=== PATIENT | male | born 1940 | race Caucasian/White ===

== ENCOUNTER 2021-06-29 10:33 | Inpatient (IN) | payer OTHER, BC ==
[2021-06-29 12:20] VITALS: BMI 30.4
[2021-06-29] MEDS ORDERED: MENTHOL/PHENOL 1 EACH UD MM PRN (16:43)
[2021-06-29] MEDS ORDERED: ACETAMINOPHEN 325 MG TABLET (FP) PO PRN ×2 (16:43)
[2021-06-29] MEDS ORDERED: MAGNESIUM CITRATE 300 ML BOTTLE PO PRN (16:43)
[2021-06-29] MEDS ORDERED: LORazepam 1 MG TABLET PO PRN (16:43)
[2021-06-29] MEDS ORDERED: MAGNESIUM HYDROX 2400MG/30ML ORAL SUSPENSION 30 ML CUP PO PRN (16:43)
[2021-06-29] MEDS ORDERED: IBUPROFEN 400 MG TABLET (FP) PO PRN (16:43)
[2021-06-29] MEDS ORDERED: ONDANSETRON *ODT* 4 MG TABLET SL PRN (16:43)
[2021-06-29] MEDS ORDERED: BISMUTH SUBSALICYLATE 524 MG/30 ML PO PRN (16:43)
[2021-06-29] MEDS ORDERED: MAG HYDROX/AL HYDROX/SIMETH 30 ML UNIT-DOSE CUP PO PRN (16:43)
[2021-06-29] MEDS ORDERED: amLODIPine BESYLATE 5 MG TABLET (FP) PO SCH (17:45)
[2021-06-29] MEDS: LORazepam 2 MG TABLET PO SCH ×2 (20:50→22:39)
[2021-06-29] MEDS: hydrOXYzine PAMOATE 25 MG CAPSULE (FP) PO SCH ×2 (20:50→22:39)
[2021-06-29] MEDS: THIAMINE HCL 100 MG TABLET (FP) PO SCH (22:39)
[2021-06-29] MEDS: MELATONIN 5 MG TABLETS PO SCH (22:39)
[2021-06-30] MEDS: hydrOXYzine PAMOATE 25 MG CAPSULE (FP) PO SCH ×5 (06:06→23:01)
[2021-06-30] MEDS: LORazepam 2 MG TABLET PO SCH ×4 (06:06→23:02)
[2021-06-30 11:02] LABS: HEMATOCRIT 45.9 % (35.4-49); HEMOGLOBIN 15.7 GM/dL (11.7-16.9); MCH 32.9 pg (25.7-33.7); MCHC 34.2 g/dl (32.0-35.9); MEAN CELL VOLUME 95.9 fl (80-96); MEAN PLT VOLUME 7.7 fl (7.5-11.1); PLATELET COUNT 327 10^3/uL (134-434); RBC 4.79 M/mm3 (4.00-5.60); RDW 13.9 % (11.9-15.9); WHITE BLOOD COUNT 8.9 K/mm3 (4.0-10.0)
[2021-06-30] MEDS: amLODIPine BESYLATE 10 MG TABLET (FP) PO SCH (11:40)
[2021-06-30 11:45] LABS: CALCIUM 9.6 mg/dL (8.5-10.1)
[2021-06-30 11:46] LABS: ALBUMIN 3.9 g/dl (3.4-5.0); BLOOD UREA NITROGEN 25.9 mg/dL (7-18)
[2021-06-30 11:50] LABS: CREATININE 1.3 mg/dL (0.55-1.3)
[2021-06-30 11:51] LABS: BILIRUBIN,TOTAL 0.4 mg/dL (0.2-1); TOT PROT 8.3 g/dl (6.4-8.2)
[2021-06-30 15:16] LABS: EPI CELLS 2 /uL (0-25.1); HYALINE CASTS 0 /uL (0-3.1); PH,URINE 5.5 (5.0-8.0); URINE APPEARANCE CLEAR; URINE BACTERIA 1 /uL (0-1359); URINE BILIRUBIN NEGATIVE (NEGATIVE); URINE COLOR YELLOW; URINE GLUCOSE (UA) NEGATIVE (NEGATIVE); URINE KETONE 1+ (NEGATIVE); URINE LEUK ESTERASE NEGATIVE (NEGATIVE); URINE NITRITE NEGATIVE (NEGATIVE); URINE PROTEIN 1+ (NEGATIVE); URINE RBC 3 /uL (0-23.9); URINE UROBILINOGEN 0.2 mg/dL (0.2-1.0); URINE WBC 3 /uL (0-25.8)
[2021-06-30] MEDS: MELATONIN 5 MG TABLETS PO SCH (23:01)
[2021-06-30] MEDS: THIAMINE HCL 100 MG TABLET (FP) PO SCH (23:01)
[2021-07-01] MEDS: LORazepam 1 MG TABLET PO SCH ×4 (06:29→22:36)
[2021-07-01] MEDS: hydrOXYzine PAMOATE 25 MG CAPSULE (FP) PO SCH ×5 (06:30→22:15)
[2021-07-01] MEDS: amLODIPine BESYLATE 10 MG TABLET (FP) PO SCH (10:32)
[2021-07-01] MEDS ORDERED: SODIUM CHLORIDE NASAL SPRAY 44 ML BOTTLE NS PRN (11:50)
[2021-07-01] MEDS: MELATONIN 5 MG TABLETS PO SCH (22:15)
[2021-07-01] MEDS: THIAMINE HCL 100 MG TABLET (FP) PO SCH (22:15)
[2021-07-01] MEDS: METHOCARBAMOL 500 MG TABLET PO PRN (22:16)
[2021-07-02] MEDS ORDERED: LORazepam 0.5 MG TABLET PO PRN
[2021-07-02] MEDS: LORazepam 0.5 MG TABLET PO SCH ×4 (06:31→22:12)
[2021-07-02] MEDS: hydrOXYzine PAMOATE 25 MG CAPSULE (FP) PO SCH ×5 (06:34→22:10)
[2021-07-02] MEDS: amLODIPine BESYLATE 10 MG TABLET (FP) PO SCH (10:33)
[2021-07-02] MEDS: METHOCARBAMOL 500 MG TABLET PO PRN (10:35)
[2021-07-02] MEDS: MELATONIN 5 MG TABLETS PO SCH (22:10)
[2021-07-02] MEDS: THIAMINE HCL 100 MG TABLET (FP) PO SCH (22:10)
[2021-07-03] MEDS ORDERED: LORazepam 0.5 MG TABLET PO ONE (05:00)
[2021-07-03] MEDS: hydrOXYzine PAMOATE 25 MG CAPSULE (FP) PO SCH ×3 (07:08→15:01)
[2021-07-03 10:16] VITALS: BP 178/88; PULSE 66; TEMP 96.8
[2021-07-03] MEDS: amLODIPine BESYLATE 10 MG TABLET (FP) PO SCH (10:27)
[2021-07-03] MEDS ORDERED: MASKS NR ONE (12:25)
== END 2021-07-03 11:12 | disposition home or self-care (01) | DRG 897 ==
LOC: YASAS 10:33 → Y3N 19:35
PROVIDERS: ADMIT Allergy & Immunology; ATTEND Allergy & Immunology
PROC: HZ2ZZZZ Detoxification Services for Substance Abuse Treatment (ICD-10-PCS; principal; 2021-06-29)
DX: F10.230 Alcohol dependence with withdrawal, uncomplicated (principal); N17.9 Acute kidney failure, unspecified; F32.9 Major depressive disorder, single episode, unspecified; I10 Essential (primary) hypertension; E78.5 Hyperlipidemia, unspecified; R04.0 Epistaxis; R79.89 Other specified abnormal findings of blood chemistry; R82.90 Unspecified abnormal findings in urine; Z87.891 Personal history of nicotine dependence; Z98.890 Other specified postprocedural states
CPT/HCPCS: 36415; 80053; 81003; 85027; 86780; C9803; U0003; U0005